=== PATIENT | female | born 1950 | race Caucasian/White ===

== ENCOUNTER 2022-10-02 16:33 | Emergency (ER) | payer MEDICARE ==
[~2022-10-02] VITALS: Ht 162.6 cm; Wt 86.7 kg
[~2022-10-02 16:33] MED LIST: BISOPROLOL FUMAR5 MG PO; BUPROPION XL150 MG PO; CALCIUM 1,0001 EACH PO; CENTRUM SILVER1 EAC3 PO; DIOVAN160 MG PO; FOLIC ACID0.4 MG PO; JANUVIA100 MG PO; KETOROLAC TROME10 MG PO; METFORMIN HCL500 MG PO; MONTELUKAST SOD10 MG PO; NISOLDIPINE25.5 MG PO; NORCO 5-325 TA1 EACH PO; SERTRALINE HCL100 MG PO; SIMVASTATIN20 MG PO; VITAMIN B-121000 MC1 PO; VITAMIN C500 MG PO
[2022-10-02 17:06] VITALS: BP 159/79; PULSE 93
[2022-10-02] MEDS ORDERED: SODIUM CHLORIDE 0.9% 500ML 500 ML IV STA (17:11)
[2022-10-02] MEDS ORDERED: SODIUM CHLORIDE 0.9% 500ML 500 ML ONE (17:20)
[2022-10-02] MEDS ORDERED: LOSARTAN POTAS100 MG PO (18:06)
[2022-10-02] MEDS ORDERED: JARDIANCE10 MG (18:06)
[2022-10-02] MEDS ORDERED: AMLODIPINE BESY10 MG PO (18:06)
[2022-10-02] MEDS ORDERED: CEFTRIAXONE 1 GM VIAL ONE (18:33)
[2022-10-02] MEDS ORDERED: MACROBID 100 M100 MG PO (18:34)
[2022-10-02 18:41] VITALS: O2SAT 97
[2022-10-02] MEDS ORDERED: CEFTRIAXONE 1 GM VIAL IV ONE (18:45)
== END 2022-10-02 18:48 | disposition home or self-care (01) ==
LOC: FSED 16:38
DX: I95.1 Orthostatic hypotension (principal); N39.0 Urinary tract infection, site not specified; E11.65 Type 2 diabetes mellitus with hyperglycemia; I10 Essential (primary) hypertension; E78.5 Hyperlipidemia, unspecified; F41.9 Anxiety disorder, unspecified; R94.31 Abnormal electrocardiogram [ECG] [EKG]
CPT/HCPCS: 70450; 80053; 81003; 82553; 84484; 85025; 93005; 99284; J0696; J7040